=== PATIENT | female | born 1985 | race Caucasian/White ===

== ENCOUNTER 2018-03-27 09:38 | Emergency (ER) | payer MEDICAID, OTHER ==
[2018-03-27 09:53] VITALS: BP 118/68
--- NOTE | 2018-03-27 10:13 | UC ---
Complaint Female HPI - HPI Summary HPI Summary: 32 y/o female presents to the urgent care c/o Bartholin cyst she noticed in her vagina 2 days ago. Pt reports she had a similar one in the same location about 1 months ago which was drained at the [facility]. Pt states pain is 8/10 sharp w/ walking and radiating to the left side of suprapubic area. She has chills and subjective fever 2 days ago. She has not taking any medication to alleviate symptoms. pt denies Hx of STD's or MRSA. Pt denies lower back pain, urinary symptoms, SOB, chest pain, abdominal pain, vaginal discharge, N/V/D. LMP : pt is expecting it today. - History Of Current Complaint Chief Complaint: UCGeneralIllness Stated Complaint: PERSONAL Time Seen by Provider: 03/27/18 10:11 Hx Obtained From: Patient Hx Last Menstrual Period: due for it today ?: No Onset/Duration: Gradual Onset, Lasting Days - days, Still Present, Worse Since - today Timing: Constant Severity Initially: Mild Severity Currently: Severe Pain Intensity: 8 Pain Scale Used: 0-10 Numeric Character: Sharp Aggravating Factor(s): Movement Alleviating Factor(s): Position Associated Signs And Symptoms: Positive: Genital Swelling Related Hx: Similar Episode/Dx as: - Bartholin cyst 1 month ago - Risk Factors Ectopic Risk Factor: Negative Ovarian Torsion Risk Factor: Negative - Allergies/Home Medications Allergies/Adverse Reactions: Allergies Allergy/AdvReac Type Severity Reaction Status Date / Time No Known Allergies Allergy Verified 03/27/18 10:57 Home Medications: Home Medications Escitalopram Oxalate [Lexapro 10 mg] 1 tab PO DAILY 03/27/18 [History Confirmed 03/27/18] hydrOXYzine HCl [Hydroxyzine HCl] 2 tab PO TID PRN 03/27/18 [History Confirmed 03/27/18] PMH/Surg Hx/FS Hx/Imm Hx Previously Healthy: Yes - Pt denies PMHX - Surgical History Surgical History: Yes Surgery Procedure, Year, and Place: Bartholin cyst I&D 01/2018 - Family History Known Family History: Positive: Diabetes - Social History Occupation: Employed Full-time Lives: With Family Alcohol Use: Rare Substance Use Type: None Smoking Status (MU): Heavy Every Day Tobacco Smoker - Immunization History Most Recent Tetanus Shot: UTD Review of Systems Constitutional: Negative Skin: Other - bartholin cyst in vagina w/ swelling and redness Eyes: Negative ENT: Negative Respiratory: Negative Cardiovascular: Negative Gastrointestinal: Negative Genitourinary: Negative, Other - labia majora swelling and painful s/p cysts Motor: Negative Neurovascular: Negative Musculoskeletal: Negative Neurological: Negative Psychological: Negative Is Patient Immunocompromised?: No All Other Systems Reviewed And Are Negative: Yes Physical Exam - Summary Physical Exam Summary: Vital signs: reviewed General: well developed, well nourished female laying on the examining table w/ o mild pain distress. Head: Normocephalic, no lesions. Eyes: PERRLA, EOM's full, conjunctiva clear, fundi grossly normal. Ears: EAC's clear, TM's normal. Nose: Mucosa normal, no obstruction. Throat: Clear, no exudates, no lesions. Neck: Supple, no masses, no thyromegaly, no bruits. Chest: Lungs clear, no rales, no rhonchi, no wheezes. Heart: RR, no murmurs, no rubs, no gallops. Abdomen: Soft, no tenderness, no masses, BS normal. Pelvic: External genitalia within normal limits. There is a Bartholin cyst palpated around 4 o'clock at the entrance of the vagina and also palpated deep in the lower side of the left labia mayora w/ some erythema observed and severe tenderness to palpation. Left side inguinal lymph node palpate.. Speculum exam: unable to performed due to pain. Rectal: No lesions, no hemorrhoids, Back: Normal curvature, no tenderness. Extremities: FROM, no deformities, no edema, no erythema. Neuro: Physiological, no localizing findings. Skin: Normal, no rashes, no lesions noted. Triage Information Reviewed: Yes Vital Signs: Initial Vital Signs Temp 98.5 F 03/27/18 09:46 Pulse 96 03/27/18 09:46 Resp 18 03/27/18 09:46 BP 118/68 03/27/18 09:46 Pulse Ox 100 03/27/18 09:46 Complaint Female Dx - Course Course Of Treatment: 32 y/o female presents to the urgent care c/o Bartholin cyst she noticed in her vagina 2 days ago. Pt reports she had a similar one in the same location about 1 months ago which was drained at the [facility]. Pt states pain is 8/10 sharp w/ walking and radiating to the left side of suprapubic area. She has chills and subjective fever 2 days ago. She has not taking any medication to alleviate symptoms. pt denies Hx of STD's or MRSA. Pt denies lower back pain, urinary symptoms, SOB, chest pain, abdominal pain, vaginal discharge, N/V/D. LMP: pt is expecting it today. Hx obtained. Pt w/ a Bartholin cyst palpated around 4 o'clock at the entrance of the vagina and also palpated deep in the lower side of the left labia mayora w/ some erythema observed and severe tenderness to palpation on examination. Pt is hemodynamically stable. Pt' symptoms dicussed w/ Dr Bacon since Pt needs Marsupalization of Bartholin cyst. Dr Bacon recommeded Pt needs a higher level of care for her Bartolin Cyst. Pt was strongly advised to go to the [facility] for further treatment. Pt understood and agreed w/ plan of care and stated she will go [facility] by Private car. Pt left clinic hemodynamically stable, and ambulating. - Differential Dx/Diagnosis Differential Diagnosis/HQI/PQRI: Appendicitis, Bartholin Cyst, Ovarian Cyst, , Renal Colic, Urinary Tract Infection Provider Diagnoses: 1- Bartholin cyst at the left side of vagina - Physician Notifications Discussed Patient Care With: Bebeto Bacon - Dr Bacon agreed w/ Pt's plan of care Discharge - Sign-Out/Discharge Documenting (check all that apply): Patient Departure - D/C w/ agnieszka recommendation to go to the [facility] for I&D of Bartholin Cyst All imaging exams completed and their final reports reviewed: No Studies - Discharge Plan Condition: Stable Disposition: HOME-RECOMMEND TO ED Patient Education Materials: Bartholin Cyst (ED) Referrals: [facility] [Outside] - 2 Days Additional Instructions: I think you need a higher level or care for I&D or your Bartholin cyst. I highly recommend you to go to the [facility] for further evaluation and treatment. The risks of not going can be , sepsis, etc. - Billing Disposition and Condition Condition: STABLE Disposition: Home-Recommend to ED
== END 2018-03-27 10:28 | disposition home health service (06) ==
LOC: UCEAST 09:38
DX: N75.0 Cyst of Bartholin's gland (principal); F17.200 Nicotine dependence, unspecified, uncomplicated
CPT/HCPCS: 99212; G0463

== ENCOUNTER 2018-03-27 10:52 | Emergency (ER) | payer OTHER ==
[2018-03-27] MEDS ORDERED: HYDROcodone/ACETAMIN 5-325 MG* 1 TAB PO ONE (13:38)
[2018-03-27] MEDS ORDERED: Lidocaine 1%* 5 ML VIAL INJ ONE (13:38)
--- NOTE | 2018-03-27 13:38 | ED ---
Skin Complaint - HPI Summary HPI Summary: Pt. is a 32 y.o female who was referred to the ER for an infected Bartholin gland cyst by CC. Pt. state she noticed pain and swelling to left labia about 4 days ago. Pt. states she has had similar sxs in the past and had cyst incised and drained. Pt. denies fever or chills, abd. pain, N/V. She denies past medical hx. Sitting makes symptoms worse. Heat makes symptoms better. Symptoms are mild in severity. - History of Current Complaint Chief Complaint: EDOBProblems Time Seen by Provider: 03/27/18 13:22 Stated Complaint: CYST-SENT FROM [facility] Hx Obtained From: Patient Hx Last Menstrual Period: due for it today Pain Intensity: 10 - Allergy/Home Medications Allergies/Adverse Reactions: Allergies Allergy/AdvReac Type Severity Reaction Status Date / Time No Known Allergies Allergy Verified 03/27/18 10:57 PMH/Surg Hx/FS Hx/Imm Hx Previously Healthy: Yes - Surgical History Surgery Procedure, Year, and Place: cyst drainage - Immunization History Date of Tetanus Vaccine: 2013 Date of Influenza Vaccine: 2017 Immunizations Up to Date: Yes Infectious Disease History: No Infectious Disease History: Denies: Traveled Outside the [place] in Last 30 Days - Family History Known Family History: Positive: Other - noncontributory - Social History Occupation: Employed Full-time Lives: With Family Alcohol Use: Rare Alcohol Amount: 1-2 x every 1-2 years Substance Use Type: Reports: Excessive Caffeine Smoking Status (MU): Light Every Day Tobacco Smoker Review of Systems Constitutional: Negative Negative: Fever, Chills Gastrointestinal: Negative Negative: Abdominal Pain, Vomiting, Nausea Positive: other - Painful lump left labia All Other Systems Reviewed And Are Negative: Yes Physical Exam Triage Information Reviewed: Yes Vital Signs On Initial Exam: Initial Vitals Temp Pulse Resp BP Pulse Ox 98.8 F 91 18 121/74 100 03/27/18 10:57 03/27/18 10:57 03/27/18 10:57 03/27/18 10:57 03/27/18 10:57 Vital Signs Reviewed: Yes Appearance: Positive: Pain Distress - Pt. sitting up in bed, tearful. Nontoxic. Skin: Positive: Warm, Dry, Other - Noted at the left posterior labial there is a 2cm area of erythema, edema, and fluctuance. Very tender to touch. No surrounding cellutlitis. Head/Face: Positive: Normal Head/Face Inspection Eyes: Positive: Normal Neck: Positive: Supple Abdomen Description: Positive: Nontender, Soft Neurological: Positive: Normal, CN Intact II-III Psychiatric: Positive: Affect/Mood Appropriate Procedures - Incision and Drainage Left Site: Left labia majora Anesthesia: Local, Lidocaine - 1cc Instrument(s): Scalpel - Small incision was made over fluctuant area. Very small amount of purulent matterial expresses mixed with blood. No packing placed. Pt. tolerated well. Packing: Other Diagnostics - Vital Signs Vital Signs Temp Pulse Resp BP Pulse Ox 03/27/18 13:15 85 18 132/84 100 03/27/18 10:57 98.8 F 91 18 121/74 100 - Laboratory Lab Statement: Any lab studies that have been ordered have been reviewed, and results considered in the medical decision making process. Course/Dx - Course Course Of Treatment: Pt. presenting with infected bartholin gland cyst. She is afebrile and well appearing. Pt. was given one lortab for pain. I and D was performed as noted above. Pt. state she is currently in the process of getting set up with B[facility] HOG OPERATOR at [facility]. Clindamycin rx. Advised warm sitz baths. Tylenol or Motrin for pain as directed. To return to ER for increased pain, swelling, redness, fever. Pt. understands and agrees with plan. - Differential Diagnoses - Skin Complaint Differential Diagnoses: Abscess, Cellulitis - Diagnoses Provider Diagnoses: Bartholin's gland abscess Discharge - Sign-Out/Discharge Documenting (check all that apply): Patient Departure - Discharge Plan Condition: Good Disposition: HOME Prescriptions: Clindamycin Cap(NF) [Clindamycin Cap 300 mg Cap(NF)] 300 mg PO Q6H #40 cap Clindamycin Cap(NF) [Clindamycin Cap 300 mg Cap(NF)] 300 mg PO Q6H #40 cap Ibuprofen TAB* [Motrin TAB* 800 MG] 800 mg PO TID #20 tab Patient Education Materials: Bartholin Cyst (ED), Incision and Drainage (ED) Forms: *Work Release Referrals: [facility] [Outside] No Primary Care Phys,NOPCP [Primary Care Provider] - Additional Instructions: Follow up with your B[facility] H[facility] OPERATOR at [facility] as scheduled Take antibiotic as directed Apply warm compresses to area Return to ER for increase pain, fever, vomiting, or if concerned - Billing Disposition and Condition Condition: GOOD Disposition: Home
[2018-03-27 16:52] VITALS: BP 140/68
== END 2018-03-27 16:50 | disposition home or self-care (01) ==
LOC: ED 10:52
DX: N75.0 Cyst of Bartholin's gland (principal); F17.200 Nicotine dependence, unspecified, uncomplicated
CPT/HCPCS: 56420; 99283

== ENCOUNTER → 2018-12-17 19:46 | Emergency (ER) | payer MEDICAID ==
[2018-12-17 19:53] VITALS: BP 113/68
== END | disposition left against medical advice (07) ==
LOC: ED 19:46
DX: R07.9 Chest pain, unspecified (principal); Z34.90 Encounter for supervision of normal pregnancy, unspecified, unspecified trimester; Z53.21 Procedure and treatment not carried out due to patient leaving prior to being seen by health care provider
CPT/HCPCS: 93005

== ENCOUNTER 2019-03-19 14:01 | Emergency (ER) | payer OTHER ==
[2019-03-19 14:21] VITALS: BP 102/65
--- NOTE | 2019-03-19 15:05 | UC ---
Throat Pain/Nasal Vidal HPI - HPI Summary HPI Summary: Patient is a 33-year-old female who presents to the urgent care with chief complaint of sore throat, nasal congestion, runny nose with clear discharge since last night. Denies any fever denies any chills she has a dry cough and has no other complaints. She is 5-1/2 months and her SALES PROMOTION DIRECTOR requested her to come to the urgent care to check for strep tests. - History of Current Complaint Chief Complaint: UCGeneralIllness Stated Complaint: SINUS CONGESTION, AND SORE THROAT Time Seen by Provider: 03/19/19 14:55 Hx Obtained From: Patient Hx Last Menstrual Period: due for it today ?: Yes Onset/Duration: Lasting Hours Severity: Mild Pain Intensity: 0 - Allergies/Home Medications Allergies/Adverse Reactions: Allergies Allergy/AdvReac Type Severity Reaction Status Date / Time No Known Allergies Allergy Verified 03/19/19 14:14 Home Medications: Home Medications Vit37/Iron/Folic Acid [Prenata] 1 chw PO DAILY 03/19/19 [History Confirmed 03/19/19] PMH/Surg Hx/FS Hx/Imm Hx Previously Healthy: Yes - Surgical History Surgical History: Yes Surgery Procedure, Year, and Place: cyst drainage - Family History Known Family History: Positive: Other - noncontributory, Non-Contributory - Social History Alcohol Use: None Alcohol Amount: 1-2 x every 1-2 years Substance Use Type: None Smoking Status (MU): Light Every Day Tobacco Smoker Amount Used/How Often: 5 cigs/ days - Immunization History Most Recent Tetanus Shot: UTD Review of Systems All Other Systems Reviewed And Are Negative: Yes Constitutional: Positive: Negative Skin: Positive: Negative Eyes: Positive: Negative ENT: Positive: Sore Throat Respiratory: Positive: Negative Cardiovascular: Positive: Negative Gastrointestinal: Positive: Negative Genitourinary: Positive: Negative Motor: Positive: Negative Neurovascular: Positive: Negative Musculoskeletal: Positive: Negative Neurological: Positive: Negative Psychological: Positive: Negative Is Patient Immunocompromised?: No Physical Exam - Summary Physical Exam Summary: Vital signs: Reviewed Gen.: Patient is a well developed and nourished female in no acute distress. Patient is sitting comfortably on the stretcher. Head: Normacephalic and atraumatic Eyes: PERRLA, EOMI x2. Ears: Right ear canal and TM WNL Left ear canal and TM WNL Nose Nose with dry mucosa and clear discharge. No sinus tenderness and mouth: Negative pharyngeal erythema with no exudate. Neck: Supple, no bilateral submandibular and anterior cervical lymphadenopathy. No JVD Lungs: CTA B/L CVS: S1 & S2 present. No murmurs appreciated. ABDOMEN: Soft NT w/ positive BS. EXT: FROM x 4 NEURO: A+O X 3. Triage Information Reviewed: Yes Appearance: Well-Appearing Vital Signs: Initial Vital Signs Temp 99.7 F 03/19/19 14:16 Pulse 82 03/19/19 14:16 Resp 18 03/19/19 14:16 BP 102/65 03/19/19 14:16 Pulse Ox 100 03/19/19 14:16 Vital Signs Reviewed: Yes Throat Pain/Nasal Course/Dx - Course Course Of Treatment: Rapid strep is negative. Therefore I believe that the patient doesn't need any antibiotics. I believe she has a viral infection. Therefore she was requested to increase her water intake, take Tylenol for discomfort and follow up with her SALES PROMOTION DIRECTOR doctor. The patient understands and agrees. - Differential Dx/Diagnosis Provider Diagnosis: Viral pharyngitis Discharge ED - Sign-Out/Discharge Documenting (check all that apply): Patient Departure All imaging exams completed and their final reports reviewed: No Studies - Discharge Plan Condition: Stable Disposition: HOME Patient Education Materials: Pharyngitis (ED) Referrals: Jahaira Adair MD [Primary Care Provider] - Additional Instructions: Take Tylenol as needed Increase your fluid intake F/U with PCP in the next 2-3 days Return to the if symptoms worsen - Billing Disposition and Condition Condition: STABLE Disposition: Home
== END 2019-03-19 15:24 | disposition home or self-care (01) ==
LOC: UCEAST 14:01
DX: J02.8 Acute pharyngitis due to other specified organisms (principal); F17.210 Nicotine dependence, cigarettes, uncomplicated
CPT/HCPCS: 87651; 99211; G0463